=== PATIENT | male | born 1950 | race Caucasian/White ===

== ENCOUNTER 2016-07-01 10:40 | Observation (INO) | payer OTHER, MEDICARE ==
[~2016-07-01] VITALS: Ht 182.9 cm; Wt 78.2 kg
[~2016-07-01 10:40] MED LIST: Aspirin PO; B 12 PO; CRES20T PO; NITR0.4T6 SL; OMEP-113 PO; TURM500C7 PO; UBID100C25 PO; Vit C PO; Vit D3 PO; [UNRECOGNIZED DRUG - OTHER] PO
[2016-07-01 10:57] VITALS: BP 142/90; PULSE 74; RESP 16; O2SAT 99
--- NOTE | 2016-07-01 11:06 | ED.REPORT ---
HPI-Chest Pain 40 and Over Date of Service Jul 01, 2016 ED Provider: Nathalie Slaughter MD The patient is a 65 year old male with history of coronary artery disease s/p stenting and CABG, hypertension, hyperlipidemia, atrial fibrillation, nonsustained ventricular tachycardia s/p pacemaker, GERD, and prostate cancer s/ p prostatectomy, who presents to the emergency department complaining of intermittent chest pain that began a couple of weeks ago. The pain has been mild and he describes the pain as a pressure. The episodes of chest pain have increased in frequency. The episodes do not seem to be brought on by anything specific and have occurred at rest. With some episodes he also experiences shortness of breath and lightheadedness. The episodes have lasted for a few seconds, few minutes, and up to a half hour. He had one episode a few days ago that was more severe. Yesterday he noticed increased shortness of breath with activity. Today his pain was located on the left side and is still present. He denies nausea, diaphoresis, radiating pain, headache, abdominal pain, extremity problems, weakness, numbness, swelling, cough, sore throat or runny nose. The patient was sick with a cough, phlegm production, and fatigue for a few months but this has resolved. Before the stents and surgery he started to have similar symptoms to what he has recently been experiencing. He was last seen by his corn crop supervisor last August. He was scheduled to see his corn crop supervisor a few weeks ago but this appointment was pushed to August, he was not having symptoms when they called to change the appointment. His last stress test was about 3-4 years ago. Nursing Notes Stated Complaint: CHEST PAIN Chief Complaint: Chest Pain Nursing Notes Reviewed: Yes Allergies: Coded Allergies: morphine (Verified Allergy, Unknown, ANAPHYLAXIS, 07/01/16) Scheduled Aspirin (Aspirin) 81 Mg Tablet 81 MG PO DAILY Cholecalciferol (Vitamin D3) (Vitamin D3) 2,000 Unit Capsule 2,000 UNIT PO MWF Cyanocobalamin (Vitamin B-12) (Vitamin B-12) 5,000 Mcg Tab.subl 5,000 MCG SL MWF Omeprazole (Omeprazole) 20 Mg Capsule.dr 20 MG PO DAILY Rosuvastatin Calcium (Rosuvastatin Calcium) 20 Mg Tablet 20 MG PO HS Ubidecarenone/Vit E Acetate (Co Q-10 100 mg Softgel) 1 Each Capsule 1 EACH PO DAILY Scheduled PRN Nitroglycerin SL (Nitrostat) 0.4 Mg Tab.subl 0.4 MG PO QAM PRN PRN For Chest Pain General Time Seen by MD: 11:05 Chief Complaint Chest pain Hx Obtained From: Patient, Spouse Arrived By: Walk-in Sudden in Onset?: Yes Onset Occurred: More than a week ago... (2 weeks) Symptom Duration: Intermittent Location: : Chest left Quality: Painful, Pressure Severity: Current: Mild Severity: Maximum: Moderate Recent Healthcare: No recent doctor visit, No recent hospitalization Similar Sx Previous: Yes Past Medical History Past Medical History Coronary artery disease s/p stenting Prostate cancer s/p prostatectomy Hypertension Hyperlipidemia Atrial fibrillation Atrial fibrillation Hx of nonsustained ventricular tachycardia s/p pacemaker GERD Arthritis Past Surgical History CABG Cardiac stenting Prostatectomy Knee surgery Hernia repair Hemorrhoidectomy Family History Noncontributory Smoking History Never Smoker Social History Other Social History: Good social support, , Local resident Ambulatory Status Independent Review of Systems Constitutional: Denies: Fever Respiratory: Reports: Dyspnea on exertion, Shortness of breath, Denies: Non-productive cough Cardiovascular: Reports: Chest pain, Dyspnea on exertion GI: Denies: Abdominal pain, Vomiting Musculoskeletal: Denies: Back pain, Extremity pain, Joint pain, Neck pain Skin: Denies Diaphoresis, Denies Swelling Neurologic: Reports: Lightheaded, Denies: Focal weakness, Headache, Numbness Complete sys rev & neg: except as marked. Ears / Nose / Throat: Denies: Nasal congestion, Sore throat Physical Exam Initial Vital Signs Vital Signs (First) Date Time Temp Pulse Resp B/P Pulse Ox O2 Delivery O2 Flow Rate FiO2 07/01/16 10:57 36.2 74 16 142/90 99 Room Air Initial VS: Reviewed, Vital signs abnormal Head / Eyes: Atraumatic, Normocephalic, PERRL ENT: Mucous membranes moist, Conjunctiva normal, No scleral icterus Neck: Supple, Non-tender, Full range of motion Lymphatic: No lymphadenopathy Extremities: Vascular intact, No swelling, No tenderness Skin: Warm, Dry, No cyanosis Neurologic: Alert, Oriented, Nonfocal Psychiatric: Mood/affect normal, Behavior normal, Normal thought content General/Constitutional: Awake, Alert, No acute distress, Well appearing, Cooperative Respiratory / Chest: Atraumatic, Breath sounds NL, Breath sounds = bilat, No respiratory distress, No rales, No rhonchi, No wheezing, No stridor, No chest tenderness Cardiovascular: Heart rate NL, Regular rhythm, Heart sounds NL, No gallop, No murmurs, No rubs, Peripheral circulation NL, Pulses = bilaterally, No gross BP differential Abdomen: Atraumatic, Soft, Non-tender, McBurney's non-tender, No guarding, No rebound, BS normoactive, No distention, No hernia, No palpable mass Upper Extremity / MS: Neurologic intact, Vascular intact Lipoma to his right distal forearm. Ankle / Foot: Vascular intact Right foot drop Interpretation & Diagnostics Lab Results Interpretation Result Diagram: 07/01/16 1150 07/01/16 1150 Test 07/01/16 11:50 White Blood Count 3.8th/mm3 (3.8-10.1) Red Blood Count 5.20mil/mm3 (4.40-5.80) Hemoglobin 14.6g/dL (13.8-17.2) Hematocrit 42.6% (41.0-50.0) Mean Corpuscular Volume 81.9fL (81-100) Mean Corpuscular Hemoglobin 28.1pg (27.0-35.0) Mean Corpuscular Hemoglobin Concent 34.3% (32.0-37.0) Red Cell Distribution Width 13.4% (12.3-15.4) Platelet Count 169bil/L (150-400) Neutrophils (%) (Auto) 62.4% (40-74) Lymphocytes (%) (Auto) 20.9% (14-46) Monocytes (%) (Auto) 12.4% (4-12) Eosinophils (%) (Auto) 3.2% (0-5) Basophils (%) (Auto) 0.8% (0-3) Sodium Level 138mEq/L (134-144) Potassium Level 4.3mEq/L (3.5-5.2) Chloride Level 102mEq/L (97-108) Carbon Dioxide Level 25mmol/L (18-29) Blood Urea Nitrogen 15mg/dL (8-27) Creatinine 1.04mg/dL (0.76-1.27) Estimat Glomerular Filtration Rate 76mL/min (>59) Glucose Level 90mg/dL (60-99) Calcium Level 9.5mg/dL (8.5-10.1) Magnesium Level 2.1mg/dL (1.6-2.6) Total Bilirubin 0.4mg/dL (0.0-1.2) Aspartate Amino Transf (AST/SGOT) 18U/L (0-50) Alanine Aminotransferase (ALT/SGPT) 17U/L (0-44) Alkaline Phosphatase 60U/L (25-160) Troponin T < 0.010ug/L (0.0-0.011) Total Protein 6.6g/dL (6.4-8.4) Albumin 4.1g/dL (3.4-5.0) Hold Echavarria Top Tube Received (Received) ECG Interpretation ECG Interpretation: Sinus rhythm with a rate of 64 No acute findings Time: 11:51 Interpreted by: ED physician X-Ray Chest Interpretation Chest Xray Interpretation: IMPRESSION: No acute pulmonary process. Dictated by: Greta Babb M.D. on 07/01/2016 at 12:18 Interpretation / Wet Read by: Interpret - Radiologist Re-Eval/Medical Decision Med Decision/Clinical Course The patient has a significant history of coronary artery disease and his symptoms remind him of his symptoms prior to leading up to his other procedures. I spoke with Dr. Murillo, they are unable to get the patient in a timely manner therefore the patient will be admitted for stress test and further evaluation. Source of Hx: Old records Time of Eval: 13:34 Re-Evaluation/Progress Note: Rechecked the patient. Discussed plan for admission. All questions were addressed. Consultation #1: Referral / Consult Name: Ashlee Murillo MD Consulted With: Cardiology Call Returned at: 13:33 Ruby Developer: Agrees with eval, Agrees with plan Note: She would like the patient admitted. Consultation #2: Referral / Consult Name: Escobar Hunt MD Consulted With: Hospitalist Call Returned at: 14:29 Ruby Developer: Will see patient, Agrees with eval, Agrees with plan, Accepts admit Counseled Regarding: Diagnosis, Lab results, Need for admission Discharge & Departure Primary Impression: Chest pain Chest pain type: unspecified Qualified Code: R07.9 - Chest pain, unspecified Disposition: ADMITTED TO HOSPITAL Discharge Condition All VS Reviewed: Yes Condition: Stable Referrals: Jaun Valdes MD (PCP) Scribe Attestation Portions of this note were transcribed by Rosalba Ramos. I, Dr. Slaughter personally performed the history, physical exam and medical decision-making; I reviewed and confirmed the accuracy of the information in the transcribed note. Signed by: Emelia Shah, 07/01/2016 at 1430. copies to: Jaun Valdes MD, Jena M MD Jul 01, 2016 11:06 Rosalba Ramos Jul 01, 2016 11:12
[2016-07-01 12:05] LABS: BASOPHILS % (AUTO) 0.8 % (0-3); EOSINOPHILS % (AUTO) 3.2 % (0-5); MONOCYTES % (AUTO) 12.4 % (4-12); Mean Corpuscular Hemoglobin 28.1 pg (27.0-35.0); Mean Corpuscular Volume 81.9 fL (81-100); NEUTROPHILS % (AUTO) 62.4 % (40-74); Platelet Count 169 bil/L (150-400)
--- NOTE | 2016-07-01 12:21 | DRSVH ---
PROCEDURE: X-RAY CHEST ONE VIEW, PORTABLE ([id number]) INDICATIONS: chest pain TECHNIQUE: One view of the chest was acquired. COMPARISON: [facility], , CHEST 1VW, 09/23/2014, 10:25. FINDINGS: Surgical changes and devices: Sternal wires. Lungs and pleura: No pleural effusions or pneumothorax. Lungs are clear. Mediastinum: Mediastinal contours appear normal. Heart size is normal. Bones and chest wall: No suspicious bony lesions. Overlying soft tissues appear unremarkable. IMPRESSION: No acute pulmonary process. Dictated by: Greta Babb M.D. on 07/01/2016 at 12:18 Approved by: Greta Babb M.D. on 07/01/2016 at 12:19
[2016-07-01 12:33] LABS: TROPONIN T < 0.010 ug/L (0.0-0.011)
[2016-07-01 12:43] LABS: Magnesium 2.1 mg/dL (1.6-2.6)
[2016-07-01 12:52] VITALS: BP 115/74; PULSE 68; RESP 14; O2SAT 99
[2016-07-01 14:31] VITALS: BP 140/65; PULSE 71; RESP 14; O2SAT 98
[2016-07-01] MEDS ORDERED: ROSU20TA27 PO (14:51)
[2016-07-01] MEDS ORDERED: CHOL200047 PO (14:51)
[2016-07-01] MEDS ORDERED: NITR0.4T PO (14:51)
[2016-07-01] MEDS ORDERED: OMEP20CA11 PO (14:51)
[2016-07-01] MEDS ORDERED: UBID1CAP52 PO (14:51)
[2016-07-01] MEDS ORDERED: ASPI-973 PO (14:51)
[2016-07-01] MEDS ORDERED: CYAN50002 SL (14:51)
[2016-07-01] MEDS ORDERED: Ondansetron 2 mg/mL 2 mL Inj IVPUSH PRN (15:20)
[2016-07-01] MEDS ORDERED: Polyethylene Glycol (PEG) 17 Gm Powder PO PRN (15:20)
[2016-07-01] MEDS ORDERED: Alum-Mag Hydrox-Simeth 30 mL Suspension PO PRN (15:20)
[2016-07-01] MEDS ORDERED: CYANOCOBALAMIN 5000 MCG SL SCH (15:20)
--- NOTE | 2016-07-01 16:07 | NUR ---
Admission Pt arrived on [facility] by wheelchair, able to stand and walk independently. No complains of chest discomfrt/pressure. A/Ox3. Oriented to call light, BR, and visiting hours.
--- NOTE | 2016-07-01 16:33 | PCM.HPMED ---
Subjective Date of Service Jul 01, 2016 Primary Provider: Admitting Physician: Escobar Hunt MD Primary Care Physician: Jaun Valdes MD Attending Physician: Escobar Hunt MD Admit Status: From the Emergency Department Chief Complaint: Chest pain History of Present Illness: 65-year-old male with past medical history of coronary artery disease status post stenting, CABG 3, prostate cancer, and hyperlipidemia presents to the emergency department with mild intermittent chest pain that has been progressively worsening over the last few weeks. He states that the pain is a mild pressure but finds it concerning because it has become more frequent. Initially episodes were lasting a few seconds to minutes and now are lasting up to a half an hour. Sensation he had today was on his left side wrapped around to his back. Yesterday he had an episode of increased shortness of breath with activity . He finds that this pain does not directly relate to activity. Often times it will come on after he has been exerting himself but can not make a direct correlation to specific events. He endorses some decreased exercise intolerance and pounding heart beats while waking from sleep at night but does not feel his heart racing or palpitations. He has had no headache, abdominal pain, nausea, vomiting, or diaphoresis. He has no current cold or flu symptoms but did have "the flu" in Apr/May. He has been on metoprolol in the past but was tapered off due to low blood pressures. Last stress test was 3-4 years ago. Prior to stent placement patient had stress test that he was unable to complete. In the emergency department patient was afebrile with a pulse of 74, blood pressure 142/90, respiratory rate 16, O2 saturation 99 on room air. Aspirin and nitroglycerin were given. Review of Systems: A comprehensive review of systems was conducted with the patient and found to be negative except as above in the History of Present Illness. Allergies Coded Allergies: morphine (Verified Allergy, Unknown, ANAPHYLAXIS, 07/01/16) Home Medications 1. Aspirin 81 mg by mouth every morning 2. Vitamin D3 2000 units by mouth Monday 3. Vitamin B12 5000 g sublingual Monday 4. Nitrostat 0.4 mg by mouth 3 when necessary for chest pain 5. Omeprazole 20 mg by mouth every morning 6. Rosuvastatin calcium 20 mg by mouth at bedtime 7. Co-Q10 100 mg soft gel by mouth every morning PMH Coronary artery disease s/p stenting Prostate cancer s/p prostatectomy Hyperlipidemia Atrial fibrillation Hx of nonsustained ventricular tachycardia GERD Arthritis Right foot drop as a result of falling off of a bridge Surgical History CABG 3 vessel in 2011 Cardiac stenting in 2009 Prostatectomy Right Knee ORIF and ligament surgery Left knee ligament repair Hernia repair bilateral Hemorrhoidectomy Family History Father with CHF Mother at of [place] at age 60, many of her siblings have also at a relatively young age with heart disease Multiple cousins with heart disease Maternal grandparents both had heart issues. 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 Exam Vital Signs Vital Sign - Last Date Time Temp Pulse Resp B/P Pulse Ox O2 Delivery O2 Flow Rate FiO2 07/01/16 14:31 36.5 71 14 140/65 98 Room Air Exam General: No acute distress, well-developed, well-nourished, appropriately interactive HEENT: Normocephalic, atraumatic. External ears without defect. Pupils equal, round, and reactive to light and accommodation. Anicteric sclerae, moist conjunctivae, and no lid lag. Oropharynx free of erythema and cobble stoning with moist mucosa. Neck: Supple with full range of motion. No jugular venous distension. No lymphadenopathy or thyromegaly. Cardiovascular: Regular rate and rhythm with no murmurs, rubs, or gallops appreciated Pulmonary: Clear to auscultation bilaterally with no crackles, wheezes, or rhonchi. Normal respiratory effort with no use of accessory muscles. Abdomen: Bowel tones present. Soft, nontender, nondistended. No hepatosplenomegaly or masses appreciated. Extremities: Lipoma on right distal forearm. No clubbing, cyanosis, edema, or lymphadenopathy appreciated. Skin: Normal temperature, turgor, and texture; no rash, ulcers, or subcutaneous nodules appreciated. Neurological: Cranial nerves grossly intact. Normal muscle strength, tone, and bulk. Right foot drop, ambulates with support and shoe otherwise independently. Psychiatric: Normal mood and affect. Alert and oriented to person, place, and time. Lab and Diagnostics Labs Troponin negative 2 Result Diagram: 07/01/16 1150 07/01/16 1150 X-Rays, CTs and MRIs PROCEDURE: X-RAY CHEST ONE VIEW, PORTABLE IMPRESSION: No acute pulmonary process. Dictated by: Greta Babb M.D. on 07/01/2016 at 12:18 Assessment & Plan 65 year old male with history of coronary artery disease s/p stenting and CABG, hypertension, hyperlipidemia, atrial fibrillation, nonsustained ventricular tachycardia s/p pacemaker, GERD, and prostate cancer s/p prostatectomy, who presents to the emergency department complaining of intermittent worsening chest pain that began a couple of weeks ago. 1. Chest pain, acute, resolved - Likely stable angina, risk factors for CAD/ACS HTN, family history, hyperlipidemia, unknown prior stress test, echo - GLORIA score 4 - Trend troponin , initial is negative - Continue ASA 81 mg PO QD - Continue statin - Nitroglycerin when necessary - Stress test AM ordered - ECHO ordered - lipid panel ordered - Repeat CBC and CMP in AM - Monitor on telemetry - Heart healthy diet -patient not on BB due to history of low BP and light headedness on metoprolol 2. GERD, present on admission, chronic -Continue PPI by mouth daily 3.CAD s/p CABG and stent Chronic conditions present on admission Osteoarthritis Hyperlipidemia Prostate cancer Acetaminophen for mild pain when necessary. Bowel regimen Senna and MiraLAX PRN. Zofran when necessary for nausea and vomiting. DVT prophylaxis with sub cutaneous Lovenox Patient is admitted under observation status with expected length of stay less than 2 midnights due to severity of presenting symptoms, risk of adverse event, and complexity of treatment plan. Pain Evaluation: Adequate Pain Control GI Prophylaxis: Proton Pump Inhibitor VTE Prophylaxis: Sub-Q Enoxaparin Resuscitation Status: CPR: Attempt Resuscitation Attending Statement The patient was seen and examined independently on 07/01/2016 and case discussed with Dr. Drew , I agree with the history, exam and plan as outlined in the note above. copies to: Chang Valdes MD; Jose Raul Frias MD, Erika R DO Jul 01, 2016 16:33 Vijay Ravi MD Jul 01, 2016 23:49
[2016-07-01 16:45] VITALS: BP 140/88; PULSE 73; RESP 18; O2SAT 100
[2016-07-01 16:55] VITALS: PULSE 76
[2016-07-01 21:41] VITALS: BP 118/74; PULSE 68; RESP 16; O2SAT 97
[2016-07-02] VITALS (8 sets, daily range): BP systolic 119–143; BP diastolic 73–88; PULSE 61–78; RESP 18; O2SAT 95–100
[2016-07-02 06:05] LABS: BASOPHILS % (AUTO) 0.5 % (0-3); MONOCYTES % (AUTO) 11.5 % (4-12); Mean Corpuscular Volume 82.2 fL (81-100); NEUTROPHILS % (AUTO) 65.1 % (40-74); Platelet Count 167 bil/L (150-400)
[2016-07-02] MEDS ORDERED: VIT E ACETATE PO SCH (08:30)
[2016-07-02] MEDS ORDERED: UBIDECARENONE PO SCH (08:30)
--- NOTE | 2016-07-02 11:45 | NUR ---
Social Work: Initial Assessment / Readiness for d/c Data: Pt is a 65 y/o male admitted for chest pain resolved. Pt's PCP is Dr Valdes. Pt's insurance is [employer] with Medicare. Readmit score is 0. EMR reviewed. PRODUCTION CLOTH CUTTER met with pt and spouse at bedside, role explained. Pt states he lives in [place] with his in a home with 5 stairs to enter where he uses no DME. Pt states he has no hx of HH or SNF, not LTC or VA benefits, not a caregiver, and they do not have an AD/DPOA, declined information. No d/c needs anticipated at this time. PRODUCTION CLOTH CUTTER will continue to follow if needs arise. Assessment: Pt who is independent at baseline. Plan: Pt will d/c home via POV with spouse when medically stable, likely today or tomorrow per MD. No d/c needs anticipated at this time. PRODUCTION CLOTH CUTTER will continue to follow if needs arise. ERIK Chow Addendum: 07/02/16 at 1147 by BRAYDEN MENDEZ Amended: Links added.
[2016-07-02] MEDS: Pantoprazole 20 mg ER24 Tablet PO SCH (13:24)
--- NOTE | 2016-07-02 14:53 | PCM.PNMED ---
Subjective Date of Service Jul 02, 2016 Subjective Patient experienced 2 more episodes of mild chest discomfort overnight lasting about 1 minute each. Otherwise he is feeling well this morning, and looking forward to his stress test. Exam Vital Signs Vital Sign - Last Date Time Temp Pulse Resp B/P Pulse Ox O2 Delivery O2 Flow Rate FiO2 07/02/16 09:54 72 07/02/16 09:09 36.6 18 128/79 98 Room Air Intake and Output 07/01/16 07/01/16 07/02/16 Cumulative From/Thru 15:00 23:00 07:00 07/01/16 10:57 - 07/02/16 05:47 Intake Total 572 ml 200 ml 772 ml Output Total 350 ml 350 ml Balance 572 ml -150 ml 422 ml Intake Oral 572 ml 200 ml 772 ml Output Urine Total 350 ml 350 ml # Voids 1 1 # Bowel Movements 0 0 0 Exam General: No acute distress, well-developed, well-nourished, appropriately interactive HEENT: Normocephalic, atraumatic. External ears without defect. Pupils equal, round, and reactive to light and accommodation. Anicteric sclerae, moist conjunctivae, and no lid lag. Oropharynx free of erythema and cobble stoning with moist mucosa. Neck: Supple with full range of motion. No jugular venous distension. No lymphadenopathy or thyromegaly. Cardiovascular: Regular rate and rhythm with no murmurs, rubs, or gallops appreciated Pulmonary: Clear to auscultation bilaterally with no crackles, wheezes, or rhonchi. Normal respiratory effort with no use of accessory muscles. Abdomen: Bowel tones present. Soft, nontender, nondistended. No hepatosplenomegaly or masses appreciated. Extremities: Lipoma on right distal forearm. Graft harvest scar on left forearm and left ankle. Scar on right lateral knee area with some deformity. No clubbing, cyanosis, edema, or lymphadenopathy appreciated. Skin: Normal temperature, turgor, and texture; no rash, ulcers, or subcutaneous nodules appreciated. Neurological: Cranial nerves grossly intact. Normal muscle strength, tone, and bulk. Right foot drop, ambulates with support and shoe otherwise independently. Psychiatric: Normal mood and affect. Alert and oriented to person, place, and time. Lab and Diagnostics Result Diagram: 07/02/16 0553 07/02/16 0553 X-Rays, CTs and MRIs PROCEDURE: X-RAY CHEST ONE VIEW, PORTABLE IMPRESSION: No acute pulmonary process. Dictated by: Greta Babb M.D. on 07/01/2016 at 12:18 Assessment & Plan 65 year old male with history of coronary artery disease s/p stenting and CABG, hypertension, hyperlipidemia, atrial fibrillation, nonsustained ventricular tachycardia s/p pacemaker, GERD, and prostate cancer s/p prostatectomy, who presents to the emergency department complaining of intermittent worsening chest pain that began a couple of weeks ago. 1. Chest pain, acute, resolved - Likely stable angina, risk factors for CAD/ACS HTN, family history, hyperlipidemia, prior stress test 3-4 years ago - GLORIA score 4 - Trend troponin negative 3 - Continue ASA 81 mg PO QD - Continue statin - Nitroglycerin when necessary - Stress test resting images in the a.m. - ECHO pending - lipid panel shows elevated triglycerides of 168 and an LDL of 54.4. - Repeat CBC and CMP in AM - Monitor on telemetry - Heart healthy diet, eats vegan diet. - patient not on BB due to history of low BP and light headedness on metoprolol - ECG when necessary for chest pain 2. GERD, present on admission, chronic -Continue PPI by mouth daily 3.CAD s/p CABG and stent Chronic conditions present on admission Osteoarthritis Hyperlipidemia Prostate cancer Acetaminophen for mild pain when necessary. Bowel regimen Senna and MiraLAX PRN. Zofran when necessary for nausea and vomiting. DVT prophylaxis with sub cutaneous Lovenox Patient is admitted under observation status with expected length of stay less than 2 midnights due to severity of presenting symptoms, risk of adverse event, and complexity of treatment plan. Likely to discharge home tomorrow after resting cardiac stress images. Pain Evaluation: Adequate Pain Control GI Prophylaxis: Proton Pump Inhibitor VTE Prophylaxis: Sub-Q Enoxaparin Resuscitation Status: CPR: Attempt Resuscitation Attending Statement The patient was seen and examined independently on 07/02/2016 and case discussed with Dr. Drew , I agree with the history, exam and plan as outlined in the note above. copies to: Jose Raul Frias MD, Erika R DO Jul 02, 2016 14:53 Vijay Ravi MD Jul 02, 2016 16:46
--- NOTE | 2016-07-02 15:57 | DRSVH ---
[facility] [address] [place] [address] Echocardiogram Report Name: JADE ARTEAGA BStudy Date: Height: 72 in Hospital Exam Location: [facility] Weight: 172 lb Gender: Male BSA: 2.0 m2 : 1950 Age: 65 yrs BP: 120/74 mmHg Reason For Study: CHEST PAIN Ordering Physician: HOSPITALIST [facility] Performed By: Jimbo Ceballos Referring Physician: Dr. Sary Valdes Interpretation Summary 1. Normal left ventricular size, wall thickness and systolic function with an estimated EF of 55 to 60% 2. Normal right ventricular size with mildly reduced systolic function. 3. No evidence for significant valvular pathology Compared to the previous study of 2012 (images reviewed), no appreciable change Procedure: A two-dimensional transthoracic echocardiogram with color flow and Doppler was performed. The study quality was technically good. Comparison is made with the echocardiogram of 01/15/14. The patient was in normal sinus rhythm during the exam. Left Ventricle: The left ventricle is normal in size. There is normal left ventricular wall thickness. The ejection fraction is estimated to be 55-60%. No obvious focal wall motion abnormalities appreciated. Right Ventricle: The right ventricle is normal size. Right ventricular systolic function is mildly reduced. Atria: Both atria are normal in size. No color doppler evidence for an ASD. Mitral Valve: The mitral valve is normal in structure and function. There is no mitral regurgitation noted. Aortic Valve: The aortic valve is trileaflet. The aortic valve opens well. The aortic valve is slightly calcified. There is mild aortic regurgitation. Tricuspid Valve: The tricuspid valve leaflets are thin and pliable. There is a trace or physiologic amount of tricuspid regurgitation. Pulmonary artery pressures cannot be estimated because of the lack of a measurable TR jet velocity. Pulmonic Valve: The pulmonic valve is normal in structure and function. There is trace pulmonic regurgitation. Great Vessels: The aortic root is normal size. The dimensions of the ascending aorta are normal. The pulmonary artery is normal size. The IVC is of normal diameter and collapses greater than 50% with a sniff. This suggests a low right atrial pressure of 3 mm Hg. Pericardium/ Pleura There is no pericardial effusion. There is no pleural effusion. MMode/2D Measurements & Calculations LVIDd: 5.4 cm LA dimension: 3.8 cm RA long axis: 4.0 cm Ao root diam LVIDs: 3.7 cm FS: 31.4 % LA A2 area: 16.9 cm RA area: 13.0 cm Aortic Jxn EPSS: 0.49 cm LA A4 area: 18.7 cm RA vol: 36.1 ml IVSd: 0.84 cm LA length (vol): 4.9 cm RA : 18.1 ml/m2 asc Aorta Diam LVPWd: 0.86 cmLA vol: 54.8 ml LA vol index: 27.4 ml/m IVC diam: 1.4 cm EDV(MOD-sp2) LV arce. diameter/BSA LV sys. diameter/BSA RVD1 (basal) (cm/m^2): 2.7 (cm/m^2): 1.8 : 3.7 cm RVD2 (mid) : 2.9 cm Doppler Measurements & Calculations Ao V2 max MV E max isael MV E/A: 0.71 PA V2 max: 81.6 cm/sec : 132.6 cm/sec : 38.5 cm/sec Med Peak E' Isael PA mean P.6 mmHg Ao max PG MV A max isael PA Accel Time: 0.07 sec : 7.0 mmHg : 53.9 cm/sec E/E' med: 5.5 Ao mean PG Pulm A Revs Dur : 4.1 mmHg MV A dur: 0.13 sec MV dec time Ao V2 mean PA V2 mean Pulm A Revs Dur - MV A : 0.20 sec : 98.4 cm/sec : 62.1 cm/sec Dur: -0.04 msec Ao V2 VTI PA pr(Accel) : 22.4 cm : 49.1 mmHg Reading Physician:03:[id number] PM
--- NOTE | 2016-07-02 19:43 | NUR ---
EKG/stress test Pt alert and oriented. Has denied chest pain or pressure all shift. At one point around 1600 he did report dizziness and slight SOB. Pt was sitting in bed when he reported this. Vitals checked and he was slightly hypertensive @143/88 HR 106. Called tele, no ectopy noted, reviewed tele, no ectopy noted. Dana made aware. She states next time to go ahead and get an EKG just to assure no change in EKG due to his cardiac sx. and current sx of dizziness and SOB. Oncoming RN made aware. Pt aware of plan. First part of stress test done today, resting part will occur tomorrow.
[2016-07-03 01:38] VITALS: BP 104/69; PULSE 72; RESP 18; O2SAT 97
--- NOTE | 2016-07-03 04:25 | NUR ---
Uneventful Night pt has denied pain during the night. no complaints at this time. pt has been able to sleep. VSS, afebrile, on Ra. IV SL, patent when flushed. NPO after midnight for resting MIBI today. pt using call light to make needs known, placed within reach.
[2016-07-03 05:22] VITALS: PULSE 72
[2016-07-03 05:44] VITALS: BP 111/73; PULSE 69; RESP 16; O2SAT 98
[2016-07-03 06:25] LABS: Mean Corpuscular Hemoglobin 27.9 pg (27.0-35.0); Mean Corpuscular Volume 82.1 fL (81-100)
[2016-07-03 08:39] VITALS: PULSE 75
[2016-07-03] MEDS: Pantoprazole 20 mg ER24 Tablet PO SCH (09:25)
[2016-07-03 09:31] VITALS: BP 126/82; PULSE 60; RESP 18; O2SAT 98
--- NOTE | 2016-07-03 09:44 | NUR ---
Nuc Med Pt being transported to [facility] via w/c.
--- NOTE | 2016-07-03 11:22 | DRSVH ---
PROCEDURE: 2 DAY STRESS TEST Rest and exercise myocardial perfusion SPECT with gated imaging and ejection fraction RADIOPHARMACEUTICAL: 21.7 mCi Tc-99m tetrafosmin IV at rest and 21.1 mCi Tc-99m tetrafosmin IV at pea k exercise. [id number] was performed. INDICATIONS: chest pain,h/o CAD TECHNIQUE: Radiopharmaceutical was injected at peak stress test, and also at rest. SPECT images wer e obtained. SPECT myocardial perfusion images were displayed in short axis, horizontal long axis, an d vertical long axis views. Gated images were reviewed using [employer] software. COMPARISON: None. CARDIAC STRESS: A standard Devang treadmill exercise tolerance test was performed by the patient under the supervision of an attending staff. The patient exercised for 7 minutes and 35 seconds; functional aerobic impai rment (JULIANA) is -9 %. Hemodynamic data: There is normal blood pressure and heart rate response to exercise stress. Rose Marieen t achieved 101% of maximum predicted heart rate at peak exercise. Symptoms: Patient denied chest pain during exercise. EKG: Baseline ECG shows sinus rhythm with nonspecific ST changes. There are no diagnostic ECG ponce es with stress. No arrythmias FINDINGS: Raw data: There is good myocardial labeling by radiotracer. No significant motion artifacts. Left ventricle function: Gated images demonstrate septal hypokinesis with fairly normal thickening ( consistent with a post surgical state) No transient ischemic dilation by visual inspection. The left ventricle resting end-diastolic volume is 102 mL. Left ventricle stress ejection fraction is 57% ; normal values are above 45%. Myocardial perfusion: There is a small area of mildly decreased uptake affecting the inferior wall t hat appears fixed on the rest and stress images. This resolves on the prone images. It also moves/t hickens on the gated images. Review of the raw data suggests diaphragmatic attenuation artifact as a contributor to these findings. No other imaging defects appreciated. IMPRESSION: 1. Appropriate hemodynamic response to exercise. 2. No chest pain or diagnostic ECG changes with stress. 3. No scintigraphic evidence for significant areas of myocardial ischemia at the level of stress achi eved. 4. Normal left ventricular size and systolic function. Dictated by: Ashlee Murillo M.D. on 07/03/2016 at 11:10 Approved by: Ashlee Murillo M.D. on 07/03/2016 at 11:21
[2016-07-03] MEDS ORDERED: OMEP20CA11 PO (11:35)
--- NOTE | 2016-07-03 11:35 | PCM.DIMED ---
Discharge Instructions Date of Service Jul 03, 2016 Dates of Hospitalization Jul 01, 2016 at 15:05 Discharge Diagnosis Discharge Diagnosis 1. Chest pain ACS ruled out , acute, resolved -probably due to GERD/acid reflux 2. GERD, present on admission, chronic 3.CAD s/p CABG and stent Chronic conditions present on admission #Osteoarthritis #Hyperlipidemia Test Results stress test IMPRESSION: 1. Appropriate hemodynamic response to exercise. 2. No chest pain or diagnostic ECG changes with stress. 3. No scintigraphic evidence for significant areas of myocardial ischemia at the level of stress achieved. 4. Normal left ventricular size and systolic function. Dictated by: Ashlee Murillo M.D. on 07/03/2016 at 11:10 Echo Interpretation Summary 1. Normal left ventricular size, wall thickness and systolic function with an estimated EF of 55 to 60% 2. Normal right ventricular size with mildly reduced systolic function. 3. No evidence for significant valvular pathology Compared to the previous study of 2012 (images reviewed), no appreciable change Diet Low fat, Low Sodium, Heart Healthy Activity Limited until seen by PCP Call your provider Fever or Chills, Shortness of breath, Bleeding, Chest pain, Vomitting, Excessive diarrhea, Weakness (unilateral) Patient Instructions You were hospitalized due to chest pain. EKG and lab test negative for heart attack. Echocardiogram unchanged and stress test low risk study.Your chest pain may be related to acid reflux. Please continue omeprazole 20 mg by mouth twice a day. Please follow-up with PCP in 1 week. Please see your PCP or come to ER if symptoms recur. Continue rest of your medications as usual with out change. Follow-up plan Please follow-up with PCP in 1 week. Please follow-up with his net maker in 3-4 weeks. Follow-up Provider: Jaun Valdes MD Follow-up with PCP in: 1 week Provider: Jose Raul Frias MD Follow-up in: 3 weeks Vijay Ravi MD Jul 03, 2016 11:35
--- NOTE | 2016-07-03 12:21 | NUR ---
Discharge Pt and understood all teaching, and medications that will be taken at home. No questions from either. Pt A&O x 4. IV DC'd intact, no problems. All belongings accounted for. Pt walked to care with .
--- NOTE | 2016-07-03 12:53 | PCM.DC.MED ---
Discharge Summary Date of Service Jul 03, 2016 Dates of Hospitalization Date of Hospital Admission Jul 01, 2016 at 15:05 Date of Discharge: Jul 03, 2016 Providers: Admitting Physician: Escobar Hunt MD Primary Care Physician: Jaun Valdes MD Attending Physician: Escobar Hunt MD Diagnosis at Time of Discharge Diagnosis at Time of Discharge 1. Chest pain ACS ruled out , acute, resolved -probably due to GERD/acid reflux 2. GERD, present on admission, chronic 3.CAD s/p CABG and stent Chronic conditions present on admission #Osteoarthritis #Hyperlipidemia Procedures XRay, CTs & MRIs PROCEDURE: X-RAY CHEST ONE VIEW, PORTABLE IMPRESSION: No acute pulmonary process. Dictated by: Greta Babb M.D. on 07/01/2016 at 12:18 Cardiac Echo Impression ECHO 07/02/16 Interpretation Summary 1. Normal left ventricular size, wall thickness and systolic function with an estimated EF of 55 to 60% 2. Normal right ventricular size with mildly reduced systolic function. 3. No evidence for significant valvular pathology Compared to the previous study of 2012 (images reviewed), no appreciable change Other Diagnostics PROCEDURE: 2 DAY STRESS TEST Rest and exercise myocardial perfusion SPECT with gated imaging and ejection fraction RADIOPHARMACEUTICAL: 21.7 mCi Tc-99m tetrafosmin IV at rest and 21.1 mCi Tc-99m tetrafosmin IV at peak exercise. [id number]-[id number] was performed. INDICATIONS: chest pain,h/o CAD TECHNIQUE: Radiopharmaceutical was injected at peak stress test, and also at rest. SPECT images were obtained. SPECT myocardial perfusion images were displayed in short axis, horizontal long axis, and vertical long axis views. Gated images were reviewed using [employer] software. COMPARISON: None. CARDIAC STRESS: A standard Devang treadmill exercise tolerance test was performed by the patient under the supervision of an attending staff. The patient exercised for 7 minutes and 35 seconds; functional aerobic impairment (JULIANA) is -9 %. Hemodynamic data: There is normal blood pressure and heart rate response to exercise stress. Patient achieved 101% of maximum predicted heart rate at peak exercise. Symptoms: Patient denied chest pain during exercise. EKG: Baseline ECG shows sinus rhythm with nonspecific ST changes. There are no diagnostic ECG changes with stress. No arrythmias FINDINGS: Raw data: There is good myocardial labeling by radiotracer. No significant motion artifacts. Left ventricle function: Gated images demonstrate septal hypokinesis with fairly normal thickening (consistent with a post surgical state) No transient ischemic dilation by visual inspection. The left ventricle resting end- diastolic volume is 102 mL. Left ventricle stress ejection fraction is 57% ; normal values are above 45%. Myocardial perfusion: There is a small area of mildly decreased uptake affecting the inferior wall that appears fixed on the rest and stress images. This resolves on the prone images. It also moves/thickens on the gated images. Review of the raw data suggests diaphragmatic attenuation artifact as a contributor to these findings. No other imaging defects appreciated. IMPRESSION: 1. Appropriate hemodynamic response to exercise. 2. No chest pain or diagnostic ECG changes with stress. 3. No scintigraphic evidence for significant areas of myocardial ischemia at the level of stress achieved. 4. Normal left ventricular size and systolic function. Dictated by: Ashlee Murillo M.D. on 07/03/2016 at 11:10 Brief History 65-year-old male with past medical history of coronary artery disease status post stenting, CABG 3, prostate cancer, and hyperlipidemia presents to the emergency department with mild intermittent chest pain that has been progressively worsening over the last few weeks. He states that the pain is a mild pressure but finds it concerning because it has become more frequent. Initially episodes were lasting a few seconds to minutes and now are lasting up to a half an hour. Sensation he had today was on his left side wrapped around to his back. Yesterday he had an episode of increased shortness of breath with activity . He finds that this pain does not directly relate to activity. Often times it will come on after he has been exerting himself but can not make a direct correlation to specific events. He endorses some decreased exercise intolerance and pounding heart beats while waking from sleep at night but does not feel his heart racing or palpitations. He has had no headache, abdominal pain, nausea, vomiting, or diaphoresis. He has no current cold or flu symptoms but did have "the flu" in Apr/May. He has been on metoprolol in the past but was tapered off due to low blood pressures. Last stress test was 3-4 years ago. Prior to stent placement patient had stress test that he was unable to complete. In the emergency department patient was afebrile with a pulse of 74, blood pressure 142/90, respiratory rate 16, O2 saturation 99 on room air. Aspirin and nitroglycerin were given. Hospital Course 65 year old male with history of coronary artery disease s/p stenting and CABG, hypertension, hyperlipidemia, atrial fibrillation, nonsustained ventricular tachycardia s/p pacemaker, GERD, and prostate cancer s/p prostatectomy, who presents to the emergency department complaining of intermittent worsening chest pain that began a couple of weeks ago. 1. Chest pain ACS ruled out , acute, resolved - Likely stable angina, risk factors for CAD/ACS HTN, family history, hyperlipidemia, prior stress test 3-4 years ago - GLORIA score 4 - troponin negative 3 negative - Continue ASA 81 mg PO QD - Continue statin - Nitroglycerin when necessary - Stress test low risk study. - ECHO unchanged from prior - lipid panel shows elevated triglycerides of 168 and an LDL of 54.4. - patient not on BB due to history of low BP and light headedness on metoprolol -pain probably due to known GERD,increased omeperazole to 20 mg po bid from daily 2. GERD, present on admission, chronic -Continue PPI by mouth as above 3.CAD s/p CABG and stent Chronic conditions present on admission Osteoarthritis Hyperlipidemia Prostate cancer discharged home condition on discharge stable Advised to follow-up with his network/telecom engineer Dr. Frias Patient is admitted under observation status with expected length of stay less than 2 midnights due to severity of presenting symptoms, risk of adverse event, and complexity of treatment plan. Likely to discharge home tomorrow after resting cardiac stress images. Exam Vital Signs (Last) Date Time Temp Pulse Resp B/P Pulse Ox O2 Delivery O2 Flow Rate FiO2 07/03/16 09:31 36.3 60 18 126/82 98 Room Air Exam General: No acute distress, well-developed, well-nourished, appropriately interactive HEENT: Normocephalic, atraumatic. External ears without defect. Neck: Supple with full range of motion. No jugular venous distension. No lymphadenopathy or thyromegaly. Cardiovascular: Regular rate and rhythm with no murmurs, rubs, or gallops appreciated Pulmonary: Clear to auscultation bilaterally with no crackles, wheezes, or rhonchi. Normal respiratory effort with no use of accessory muscles. Abdomen: Bowel tones present. Soft, nontender, nondistended. No hepatosplenomegaly or masses appreciated. Extremities: Lipoma on right distal forearm. Graft harvest scar on left forearm and left ankle. Scar on right lateral knee area with some deformity. No clubbing, cyanosis, edema, or lymphadenopathy appreciated. Skin: Normal temperature, turgor, and texture; no rash, ulcers, or subcutaneous nodules appreciated. Neurological: Cranial nerves grossly intact. Normal muscle strength, tone, and bulk. Psychiatric: Normal mood and affect. Alert and oriented to person, place, and time. Test 07/01/16 11:50 07/01/16 22:50 07/02/16 05:53 07/03/16 06:05 Magnesium Level 2.1mg/dL (1.6-2.6) Hold Echavarria Top Tube Received (Received) Troponin T 0.010ug/L (0.0-0.011) Neutrophils (%) (Auto) 65.1% (40-74) Lymphocytes (%) (Auto) 17.7% (14-46) Monocytes (%) (Auto) 11.5% (4-12) Eosinophils (%) (Auto) 5.0% (0-5) Basophils (%) (Auto) 0.5% (0-3) Total Bilirubin 0.5mg/dL (0.0-1.2) Aspartate Amino Transf (AST/SGOT) 15U/L (0-50) Alanine Aminotransferase (ALT/SGPT) 14U/L (0-44) Alkaline Phosphatase 54U/L (25-160) Total Protein 5.9g/dL (6.4-8.4) Albumin 3.7g/dL (3.4-5.0) Triglycerides Level 168mg/dL (0-149) Cholesterol Level 116mg/dL (100-199) LDL Cholesterol, Calculated 54.400mg/dL (0-99) VLDL Cholesterol 33.600mg/dL HDL Cholesterol 28mg/dL (>39) Cholesterol/HDL Ratio 4.14 (0.0-4.4) White Blood Count 3.9th/mm3 (3.8-10.1) Red Blood Count 4.91mil/mm3 (4.40-5.80) Hemoglobin 13.7g/dL (13.8-17.2) Hematocrit 40.3% (41.0-50.0) Mean Corpuscular Volume 82.1fL (81-100) Mean Corpuscular Hemoglobin 27.9pg (27.0-35.0) Mean Corpuscular Hemoglobin Concent 34.0% (32.0-37.0) Red Cell Distribution Width 13.4% (12.3-15.4) Platelet Count 166bil/L (150-400) Sodium Level 141mEq/L (134-144) Potassium Level 4.3mEq/L (3.5-5.2) Chloride Level 105mEq/L (97-108) Carbon Dioxide Level 24mmol/L (18-29) Blood Urea Nitrogen 13mg/dL (8-27) Creatinine 0.99mg/dL (0.76-1.27) Estimat Glomerular Filtration Rate 80mL/min (>59) Glucose Level 97mg/dL (60-99) Calcium Level 9.3mg/dL (8.5-10.1) Discharge Medications Discharge Medications Aspirin (Aspirin) 81 Mg Tablet 81 MG PO QAM (Reported) Cholecalciferol (Vitamin D3) (Vitamin D3) 2,000 Unit Capsule 2,000 UNIT PO MWF ( Reported) Cyanocobalamin (Vitamin B-12) (Vitamin B-12) 5,000 Mcg Tab.subl 5,000 MCG SL MWF (Reported) Omeprazole (Omeprazole) 20 Mg Capsule.dr 20 MG PO BID Prescribed by: AKHIL GUILLEN MD Rosuvastatin Calcium (Rosuvastatin Calcium) 20 Mg Tablet 20 MG PO HS (Reported) Ubidecarenone/Vit E Acetate (Co Q-10 100 mg Softgel) 1 Each Capsule 1 EACH PO QAM (Reported) As needed Nitroglycerin SL (Nitrostat) 0.4 Mg Tab.subl 0.4 MG PO QAM PRN PRN For Chest Pain (Reported) Followup Plan Disposition: home Follow-up plan Please follow-up with PCP in 1 week. Please follow-up with his network/telecom engineer in 3-4 weeks. Discharge Diet: Low fat, Low Sodium, Heart Healthy Discharge Activity: Limited until seen by PCP Patient Instructions You were hospitalized due to chest pain. EKG and lab test negative for heart attack. Echocardiogram unchanged and stress test low risk study.Your chest pain may be related to acid reflux. Please continue omeprazole 20 mg by mouth twice a day. Please follow-up with PCP in 1 week. Please see your PCP or come to ER if symptoms recur. Continue rest of your medications as usual with out change. Follow-up Provider: Jaun Valdes MD Follow-up with PCP in: 1 week Provider: Jose Raul Frias MD Follow-up in: 3 weeks copies to: Jaun Valdes MD; Jose Raul Frias MD, Melaku MD Jul 03, 2016 12:52
== END 2016-07-03 12:09 | disposition home or self-care (01) ==
LOC: SED 10:40 → MPC 15:05
PROVIDERS: ADMIT Hospitalist; ATTEND Internal Medicine
DX: R07.9 Chest pain, unspecified (principal); K21.9 Gastro-esophageal reflux disease without esophagitis; I25.10 Atherosclerotic heart disease of native coronary artery without angina pectoris; I10 Essential (primary) hypertension; I48.91 Unspecified atrial fibrillation; I47.2 Ventricular tachycardia; E78.5 Hyperlipidemia, unspecified; M19.90 Unspecified osteoarthritis, unspecified site; Z85.46 Personal history of malignant neoplasm of prostate; Z88.8 Allergy status to other drugs, medicaments and biological substances; Z95.1 Presence of aortocoronary bypass graft; Z95.5 Presence of coronary angioplasty implant and graft; Z95.0 Presence of cardiac pacemaker; Z79.82 Long term (current) use of aspirin; Z90.79 Acquired absence of other genital organ(s)
CPT/HCPCS: 36415; 71010; 78452; 80048; 80053; 80061; 83735; 84484; 85025; 85027; 93005; 93017; 99285; A9502; C8929; G0378; J1650

== ENCOUNTER 2016-12-08 07:18 | Inpatient (IN) | payer OTHER, MEDICARE ==
[2016-12-08] VITALS (12 sets, daily range): BP systolic 104–141; BP diastolic 62–87; PULSE 54–81; RESP 12–18; O2SAT 94–99
[~2016-12-08] VITALS: Ht 180.3 cm; Wt 78.2 kg
[~2016-12-08 07:18] MED LIST changes: +ASPI-973 PO; -Aspirin PO; -B 12 PO; +Bupivacaine Liposome 1.3% 20 mL Inj INFILTRATE SCH; +CHOL200025 PO; +CYAN1TAB42 PO; +CeFAZolin 2 Gm/50 mL D5W IV Premix IV ONE; +NITR0.4T38 SL; -NITR0.4T6 SL; -OMEP-113 PO; +OMEP20CA11 PO; +TURM1CAP PO; -TURM500C7 PO; -UBID100C25 PO; +UBID1CAP52 PO; +Vancomycin Inj 1,250 MG in 0.9% Sodium Chloride 250 ML IV ONE; -Vit C PO; -Vit D3 PO; -[UNRECOGNIZED DRUG - OTHER] PO
[2016-12-08] MEDS: Lactated Ringer's 1,000 ML IV SCH ×4 (08:06→13:11)
[2016-12-08] MEDS ORDERED: Lactated Ringer's 500 ML IV PRN (10:03)
[2016-12-08] MEDS ORDERED: Lactated Ringer's 1,000 ML IV SCH (10:03)
--- NOTE | 2016-12-08 10:03 | PCM.HPANE ---
Patient Data Surgeon Admitting Provider: Attending Provider:Ernie Reyna MD Primary Care Physician:Jaun Valdes MD Other Provider:Debbie Chanceingham Anesthesia Reason for Visit Right Knee Osteoarthritis Ht/WT & BMI Height (Feet): 5 Height (Inches): 11 Weight (Kilograms): 80.64 Body Mass Index 24.00 Allergies Coded Allergies: morphine (Verified Allergy, Unknown, ANAPHYLAXIS, 11/30/16) Past Anesthesia History Anesthesia History: Denies:: Abnormal Airway, Anesthesia Reactions (itching and burning with morphine, ), Difficult Intubation, Fam Anesthesia Reaction, Fam Malignant Hypertherm, Malignant Hyperthermia Diabetes History Hx Diabetes?: No MRSA MRSA: No Medications Blood Thinner: Aspirin Hypertension Medication: No Home Meds Incl Beta Sheila: No Reported Medications Cholecalciferol (Vitamin D3) (Vitamin D3)2,000 Unit Tablet2,000 Unit PO DAILY 11/30/16 Turmeric/Turmeric Ext/Pepr Ext (Turmeric Complex 500 mg Cap)500 Mg-3 Mg Capsule1 Each PO DAILY 11/30/16 Omeprazole 20 Mg Capsule.dr20 Mg PO DAILY Ref 0 11/30/16 Nitroglycerin SL 0.4 Mg Tab.subl0.4 Mg SL PRN For Chest Pain 11/30/16 Rosuvastatin Calcium (Crestor)20 Mg [id number] Mg PO DAILY 30 Days Ref 0 11/30/16 Cyanocobalamin/Folic Acid (Vitamin P23-Tyfic Acid Tablet)1 Each Tablet1 Each PO 3xweekly 11/30/16 Aspirin 81 Mg Gaatng21 Mg PO DAILY Ref 0 11/30/16 Discontinued Reported Medications Ubidecarenone/Vit E Acetate (Co Q-10 100 mg Softgel)1 Each Capsule1 Each PO DAILYWD 11/30/16 History History of ENT Problems?: No HEENT History: Positive for:: Hearing Problem (upper register hearing loss) Denies:: Abnormal Airway Cataracts Difficult Intubation Dysphagia Glaucoma Sinus Problem TMJ Denture Type: None Teeth Condition: Within Normal Limits Hx of Heart Problems?: Yes Cardiovascular History: Positive for:: Atrial Fibrillation Cardiac Surgery (Stent to LAD 2010, CABG 2012) Chest Pain Coronary Artery Disease Irregular Heartbeat (Hx Non-sust VT, post-op afib, hx a.flutter) Rheumatic Fever Denies:: AICD Congestive Heart Failure Edema Heart Murmur Hypertension Pacemaker Thrombophlebitis Valvular Heart Disease (echo 2017- ef 55-60%) Hx of Respiratory Problem?: Yes Respiratory History: Positive for:: Dyspnea (ON EXERTION) Use of C-PAP Machine Denies:: Asthma COPD Emphysema Hemoptysis Oxygen Administration Pneumonia (past hx of as child) Tuberculosis Hx Neurologic Problems?: Yes Neurological History: Denies:: Alzheimer's Disease CVA Dementia Dizziness Headaches Multiple Sclerosis Parkinson's Disease Seizures TIA Hx of GI Problems?: Yes Hx of Problems?: No Genitourinary History: Denies:: Kidney Stones Urinary Tract Infection Male Hx: Positive for:: Prostate Problems (radical prostatectomy hx, followed by oncology) Denies:: Scrotal Mass Testicular Surgery Skin History: Denies:: History Skin Disorders? Pressure Ulcers Hx Musculoskeletal Problems?: Yes Musculoskeletal History: Positive for:: Back Injury (hx of back problems ) Degenerative Joint Musculoskeletal Trauma (Damaged nerve in right LE causing foot drop.) Osteoarthritis Denies:: Fibromyalgia Joint Replacement (right knee current admission plan) Myasthenia Gravis Systemic Lupus Hx of Psycho/Social Problems?: No Psycho Social History: Denies:: Anxiety Hx Depression Hx Surgeries?: Yes (CABG, hemorrhoidectomy, tonsil, left ing hernia, prostatectomy) Hx Any Other Health Problems?: Yes Other History: Positive for:: Cancer (prostate ) Hospitalization Denies:: Endocrine Disease Thyroid Disease History Blood Transfusions: Positive for:: Accept Blood Products? Blood Transfusions Denies:: Blood Transfuse Reaction Hx Diabetes: No Hx Alcohol Use: YesAlcoholic Drinks Per Day: one drink dailyHx Substance Use: No Smoking Status: Never Smoker Have You Smoked inLast 12 mo: No Stop/Bang Treated for Sleep Apnea?: Yes Do You Have a CPAP Machine?: Yes S-Snoring: Do You Snore Loudly: Yes T-Tired: feel tired, fatigued: Yes O-Obsered: Observed not breath: Yes P-Blood Pressure: treated: No B- Body Mass Index > 35 kg/m2: No A- Age over 50: Yes N- Neck Large Circumference: No G- Gender Male: Yes ROSS Total Score: 5 ROSS Risk Assessment: High Risk, =/>3 Yes ROSS Category 1: Yes Risk Assessment Category Category 1A: Patient has history of documented sleep apnea, and HAS NOT received any narcotic, sedative or anesthesia administration during this stay. Category 1B: Patient has history of documented sleep apnea, and HAS received any narcotic , sedative or anesthesia administration during this stay Category 2: Patient has SUSPECTED Obstructive Sleep Apnea, and HAS received any narcotic , sedative or anesthesia administration during this stay. Category 3: Patient has SUSPECTED Obstructive Sleep Apnea and HAS NOT received narcotic, sedative or anesthesia administration during this stay. Category 4: Outpatient in Procedural Areas with known sleep apnea or who screen positive for High Risk via the STOP/BANG questionnaire. Exam Exam General Appearance: Alert, Oriented X3, Cooperative HEENT/AIRWAY: MP 2 Lungs: Clear to Auscultation Heart: Regular Rate/Rhythm Plan Impression Patient chart reviewed, patient interviewed and anesthestic plan with risks, benefits, and alternatives discussed, and informed consent obtained. ASA Physical Status: ASA3 Severe Disease Anesthetic Plan: Regional Block, SAB Bene/Risks/Altern/Consents: Yes HP Complete Prior to Induction: Yes Burton Ponce DO Dec 08, 2016 08:03
[2016-12-08] MEDS ORDERED: Ondansetron 2 mg/mL 2 mL Inj IVPUSH PRN (10:05)
[2016-12-08] MEDS ORDERED: EPHEDrine Sulfate 50 mg/mL Inj IVPUSH PRN (10:05)
[2016-12-08] MEDS ORDERED: Atropine 0.4 mg/mL Inj IVPUSH PRN (10:05)
[2016-12-08] MEDS ORDERED: MetoCLOpramide 5 mg/mL 2 mL Inj IVPUSH PRN (10:05)
[2016-12-08] MEDS ORDERED: Dexamethasone 4 mg/mL Inj IVPUSH PRN (10:05)
[2016-12-08] MEDS ORDERED: Labetalol 5 mg/mL 20 mL Inj IV PRN (10:05)
[2016-12-08] MEDS ORDERED: fentaNYL-PF 50 mCg/mL 2 mL Inj IVPUSH PRN (10:05)
[2016-12-08] MEDS ORDERED: Phenylephrine 10,000 mCg/mL Inj IVPUSH PRN (10:05)
[2016-12-08] MEDS ORDERED: hydrALAZINE 20 mg/mL Inj IVPUSH PRN (10:05)
[2016-12-08] MEDS ORDERED: Bupivacaine-MPF 0.25%/EPI 30 mL Inj INFILTRATE ONE (10:08)
[2016-12-08] MEDS ORDERED: Gentamicin 40 mg/mL 2 mL Inj IRRIGATION ONE (10:08)
--- NOTE | 2016-12-08 11:09 | OP ---
[address] [address] OPERATIVE REPORT PATIENT: JADE ARTEAGA : 1950 MR#: [id number] ADMIT: 12/08/2016 JOB ID: [id number] DATE OF SURGERY: 12/08/2016 PREOPERATIVE DIAGNOSIS(ES): Osteoarthritis, right knee. POSTOPERATIVE DIAGNOSIS(ES): Osteoarthritis, right knee. PROCEDURE: Right total knee replacement. SURGEON: Ernie Reyna M.D. STRUCTURAL ANALYST: Kristyn Dunn PA-C. Editorial Specialist required due to the complexity of the operation. INDICATIONS: This gentleman has had severe progressive disability associated with the right knee. He has failed to respond to conservative management and requests proceeding with a total knee replacement. He understands and accepts the potential for risks and complications, which include but is not limited to infection, thromboembolic, neurovascular events, as well as potential for implant failure. DESCRIPTION OF PROCEDURE: The patient was prepped and draped in the usual sterile fashion. An anteromedial approach was made to the knee. Dissection was carried down. Patella was subluxed laterally. The patella was examined. There was a large lesion of the trochlear groove, but the articular surface of the patella was completely normal and a decision was made not to resurface this. The drill hole was placed in the distal femur and a 5 degree valgus distal femoral cut was made. Following this, the femur was sized to a 9 block which was utilized to make chamfer cuts. All bone fragments were removed. The tibia was cut with the extramedullary tool sized to an F. All meniscal tissue and osteophytes were removed. Trial reduction was performed and excellent range of motion and soft tissue tension and tracking was achieved with a 10 mm polyethylene insert. Copious irrigation with saline followed by Betadine irrigation per protocol was utilized. Following pressurized lavage, pressurized cementation of the components ensued. The final construct was assembled. Tourniquet was let down. Hemostasis was achieved. A deep Hemovac drain was left. The knee was closed deep with number #2 Quill deep followed by 2-0 Vicryl, 3-0, and a 4-0 intracuticular stitch with Steri-Strips. Sterile dressing applied. The patient returned to the recovery room in stable condition. He tolerated the procedure well. There were no complications.
--- NOTE | 2016-12-08 11:52 | DRSVH ---
PROCEDURE: X-RAY RIGHT KNEE, ONE OR TWO VIEWS ([id number]) INDICATIONS: check alignment TECHNIQUE: 2 views of the knee acquired. COMPARISON: [facility], CR, XR KNEE 1 OR 2VW RT, 09/13/2016, 15:11. FINDINGS: Bones: Patient is status post right knee joint arthroplasty. Hardware components are in expected po sitions with near-anatomic alignment. There is periprosthetic lucency noted along the lateral tibial plateau. Visualized bony structures are intact. Soft tissues: Overlying postoperative changes are noted. IMPRESSION: 1. Postsurgical changes status post right knee arthroplasty with near-anatomic alignment. Dictated by: Jaun Reyes M.D. on 12/08/2016 at 11:49 Approved by: Jaun Reyes M.D. on 12/08/2016 at 11:50
[2016-12-08] MEDS ORDERED: Bupivacaine-MPF 0.75% 30 mL Inj ONE (12:09)
[2016-12-08] MEDS ORDERED: Propofol 10,000 mCg/mL 20 mL Inj ONE (12:09)
[2016-12-08] MEDS ORDERED: MetoCLOpramide 5 mg/mL 2 mL Inj IV PRN (12:20)
[2016-12-08] MEDS ORDERED: Ondansetron 2 mg/mL 2 mL Inj IV PRN (12:20)
[2016-12-08] MEDS ORDERED: Ondansetron 8 mg ODT Tablet PO PRN (12:20)
[2016-12-08] MEDS ORDERED: Sodium Biphos-Phos 133 mL Enema RECTAL PRN (12:20)
[2016-12-08] MEDS ORDERED: oxyCODONE-Acetamin 5-325 mg Tablet PO PRN (12:20)
[2016-12-08] MEDS ORDERED: LORazepam 0.5 mg Tablet PO PRN (12:20)
[2016-12-08] MEDS ORDERED: Magnesium Hydroxide 10 mL Oral Concentration PO PRN (12:20)
[2016-12-08] MEDS ORDERED: diphenhydrAMINE 25 mg Capsule PO PRN (12:20)
--- NOTE | 2016-12-08 12:27 | PCM.ANEP1 ---
Post Anesthesia PACU Phase 1 Assessment Vital Signs Vital Signs Date Time Temp Pulse Resp B/P Pulse Ox O2 Delivery O2 Flow Rate FiO2 12/08/16 11:55 36.4 58 15 110/68 96 Room Air 12/08/16 11:45 54 13 109/64 96 Room Air 12/08/16 11:38 15 96 12/08/16 11:30 36.4 59 15 104/63 94 Room Air 12/08/16 11:20 59 15 107/62 94 Room Air 12/08/16 11:15 61 14 106/65 94 Room Air 12/08/16 11:15 14 96 12/08/16 11:12 36.3 67 12 109/65 94 Room Air 12/08/16 08:02 36.1 74 16 134/86 99 Room Air Anesthetic Administered: Regional Block, SAB Level of Alertness: Awake, talking STONER's with Equal Strength: No (SAB) Pain: No Nausea or Vomiting: No CV Function & Hydration Stable: Yes Airway Device: Oxygen Delivery: Room Air Lungs: Clear to Auscultation Dermatome Level: L1,2 (Groin) PACU Phase 2 Assessment Complications: No Follow up Care: N/A Patient Instructions Provided: N/A Burton Ponce DO Dec 08, 2016 12:27
[2016-12-08] MEDS: Ketorolac 15 mg/mL Inj IV SCH ×2 (15:08→20:41)
[2016-12-08] MEDS: Alum-Mag Hydrox-Simeth 30 mL Suspension PO PRN ×2 (15:08→21:47)
--- NOTE | 2016-12-08 16:08 | NUR ---
Post op Pt arrived at 1200 in bed. Right knee wrapped in shyanne wrap with ice bag in place. SCD on unaffected leg, RA, VSS, STONER, A&O x 3. No c/o pain. Pt oriented to room and call light.
[2016-12-08] MEDS: CeFAZolin 2 Gm/50 mL D5W Premix IV SCH (18:00)
[2016-12-08] MEDS ORDERED: Vancomycin Inj 1,250 MG in 0.9% Sodium Chloride 250 ML IV ONE (20:30)
[2016-12-09] MEDS: CeFAZolin 2 Gm/50 mL D5W Premix IV SCH (01:58)
[2016-12-09] MEDS: Ketorolac 15 mg/mL Inj IV SCH (02:11)
[2016-12-09 04:50] VITALS: BP 128/80; PULSE 84; RESP 16; O2SAT 97
--- NOTE | 2016-12-09 05:08 | NUR ---
Pain/dressing Pt requested Tylenol for headache /10 and reduced to 1/10 at reassessment. No further complaints at this time. Scheduled Ketorolac helpful in pain control receiving last routine dose and ice packs applied to RT knee. No drainage noted on shyanne wraps. Dressing c/d/i. VSS. Care continues.
[2016-12-09 05:33] LABS: BASOPHILS % (AUTO) 0.4 % (0-3); EOSINOPHILS % (AUTO) 3.1 % (0-5); MONOCYTES % (AUTO) 13.4 % (4-12); Mean Corpuscular Hemoglobin 28.7 pg (27.0-35.0); Mean Corpuscular Volume 82.9 fL (81-100); NEUTROPHILS % (AUTO) 75.1 % (40-74); Platelet Count 151 bil/L (150-400)
[2016-12-09] MEDS: Pantoprazole 20 mg ER24 Tablet PO SCH (06:22)
[2016-12-09] MEDS: hydrOXYzine Pamoate 25 mg Capsule PO PRN ×5 (07:50→23:11)
[2016-12-09 08:00] VITALS: BP 124/76; PULSE 76; RESP 18; O2SAT 97
[2016-12-09] MEDS: Lactated Ringer's 1,000 ML IV SCH ×2 (08:05→20:48)
[2016-12-09] MEDS: HYDROcodone-APAP 5-325 mg Tablet PO PRN ×6 (08:07→23:11)
[2016-12-09 13:04] VITALS: BP 108/69; PULSE 82; RESP 18; O2SAT 95
--- NOTE | 2016-12-09 14:21 | PCM.PNORTH ---
Subjective Date of Service: Dec 09, 2016 Visit Information: Reason for Visit Right Knee Osteoarthritis Surgery/Surgery Date Post-Op Day # Date of Admission: Dec 08, 2016 at 12:08 Hospital Day # Subjective Patient states he is having some pain but it is controlled with his pain medication. He has no concerns Postop General: No Complaints, No Shortness of Breath, No Chest Pain Pain Management: PO Objective Exam Objective Patient sitting up in bed Vital Signs and I/O Vital Sign - Last Date Time Temp Pulse Resp B/P Pulse Ox O2 Delivery O2 Flow Rate FiO2 12/09/16 10:48 Room Air 12/09/16 08:00 36.7 76 18 124/76 97 12/09/16 00:28 21 Intake and Output 12/08/16 12/08/16 12/09/16 Cumulative From/Thru 15:00 23:00 07:00 11/30/16 10:39 - 12/09/16 06:26 Intake Total 1000 ml 1173 ml 2314 ml 4487 ml Output Total 100 ml 600 ml 660 ml 1360 ml Balance 900 ml 573 ml 1654 ml 3127 ml Intake Oral 1000 ml 1200 ml 2200 ml IV Total 1000 ml 173 ml 1114 ml 2287 ml Output Urine Total 600 ml 660 ml 1260 ml Drainage Total 0 ml 0 ml 0 ml Estimated Blood Loss 100 ml 100 ml # Bowel Movements 0 0 Lab & Micro Results Laboratory Tests Test 12/09/16 04:46 White Blood Count 5.2th/mm3 (3.8-10.1) Red Blood Count 4.22mil/mm3 (4.40-5.80) Hemoglobin 12.1g/dL (13.8-17.2) Hematocrit 35.0% (41.0-50.0) Mean Corpuscular Volume 82.9fL (81-100) Mean Corpuscular Hemoglobin 28.7pg (27.0-35.0) Mean Corpuscular Hemoglobin Concent 34.6% (32.0-37.0) Red Cell Distribution Width 12.7% (12.3-15.4) Platelet Count 151bil/L (150-400) Neutrophils (%) (Auto) 75.1% (40-74) Lymphocytes (%) (Auto) 7.8% (14-46) Monocytes (%) (Auto) 13.4% (4-12) Eosinophils (%) (Auto) 3.1% (0-5) Basophils (%) (Auto) 0.4% (0-3) Result Diagram: 12/09/16 0446 General Appearance: Alert, Oriented X3, Cooperative, No Acute Distress Extremities: Distal Pulses Palpable, No Compartment Syndrom Noted Postop Sensory Motor: Distal Motor Intact, Movement in Toes, Distal Sensation Intact, NVI Distally SURGICAL WOUND : Wound Location/Description Perioperative dressing c/d/i Drain Location Body Site: Knee Wound Drainage Type: Hemovac Assessment & Plan Impression POD#1 right total knee arthroplasty Problems: Plan Weightbearing: Weightbearing as tolerated with a front wheeled walker DVT prophylaxis: Aspirin 81 mg twice a day 6 weeks Physical therapy for transfers, progressive ambulation, strengthening Wound care: Perioperative dressing will be changed to an island dressing tomorrow. Analgesia: Oral pain management preferred Discharge plan: Discharge home in 1-2 days. Start outpatient physical therapy next week. Follow-up plan: In 2 weeks at [facility] with JAC for wound check and at [address] Reyna with x-rays Kristyn Dunn PA-C Dec 09, 2016 11:12
--- NOTE | 2016-12-09 14:57 | NUR ---
Activity Pt up and ambulating in hallway with PT and sitting in chair multiple times today. Only having mild pain 3/10 that is well controlled with meds. Ice bags in place. Dressing is CDI. Hemovac set to suction and has sero-sanguinous output. Transferring care to ADDY Hurd.
--- NOTE | 2016-12-09 16:13 | NUR ---
Social Work: Initial Assessment/Multidisciplinary Rounds D: Per EMR review, pt is a 66 year old male admitted for right knee osteoarthritis. Pt is [employer] with Medicare Part A; pt has no LTC or VA benefits. PCP is Jaun Valdes MD. NOK is Suyapa Moe, , . Advanced directives not completed- pt declined information. Readmit score not entered. Pt discussed in Multidisciplinary rounds. Capacity for self care discussed; no concerns or needs at this time. STOCK REPAIRER met with the patient at bedside. Social work/dcp role explained, contact information and discharge planning checklist provided. See initial assessment. Pt lives at home with is in [place]. 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 The patient has never had skilled rehab but has a very distant history with home health. He cannot recall which company. P anticipates discharge home with his when medically stable and states that he has been ambulating I. A: Pt who is I at baseline. P: Anticipate pt to discharge home via POV once medically stable; STOCK REPAIRER to continue to follow to assess for unmet discharge needs ERIK Pappas Addendum: 12/09/16 at 1616 by HARISH MENDEZ Amended: Links added.
--- NOTE | 2016-12-09 18:03 | NUR ---
Hemovac/Flu Shot Hemovac: Hemovac dc'd intact at 1710 with 100cc output. Gauze and tegaderm in place. Pt REINA wrap reapplied. Flu Shot: Pt requesting to have his flu shot during this hospitalization d/t upcoming flu season. Attempted to call on-call OBI, no answer, no message left. Cook page then sent at [phone]. Care continues.
[2016-12-09 20:09] VITALS: BP 114/69; PULSE 76; RESP 16; O2SAT 96
[2016-12-09 23:39] LABS: APPEARANCE,URINE CLEAR (CLEAR,HAZY); COLOR,URINE YELLOW (YELLOW); OCCULT BLOOD,URINE NEGATIVE (NEGATIVE); UROBILINOGEN,URINE NORMAL (NORMAL)
--- NOTE | 2016-12-10 03:31 | NUR ---
Pain Pt reporting pain 3-4/10 and had been taking 1 tab of Wilson q3 hrs to control pain. However, pt did need additional pain pill an hour after given since pain remained the same. Pt can have 1-2 tabs q3 hrs. Pt also taking Vistaril q4 hrs to help with pain control. Ice applied to knee. [place] wrap dressing is CDI. Pt keeps AFO brace on right ankle for baseline foot drop. PA did confirm that she did not want to give the patient a flu shot.
[2016-12-10] MEDS: HYDROcodone-APAP 5-325 mg Tablet PO PRN ×3 (04:02→10:18)
[2016-12-10] MEDS: hydrOXYzine Pamoate 25 mg Capsule PO PRN ×2 (04:03→08:01)
[2016-12-10 05:13] VITALS: BP 118/65; PULSE 70; RESP 16; O2SAT 97
[2016-12-10] MEDS: Pantoprazole 20 mg ER24 Tablet PO SCH (05:55)
--- NOTE | 2016-12-10 09:39 | PCM.PNORTH ---
Subjective Date of Service: Dec 10, 2016 Visit Information: Reason for Visit Right Knee Osteoarthritis Surgery/Surgery Date Post-Op Day # 2 Date of Admission: Dec 08, 2016 at 12:08 Hospital Day # Subjective Patient states he is feeling well today. He states his pain is well controlled and localized to his right knee. He states he has worked with physical therapy and feels confident in his ability to ambulate safely with the assistance of a front wheeled walker. Postop General: No Complaints, No Shortness of Breath, No Chest Pain Pain Management: PO Objective Exam Objective Patient sitting up in chair and then ambulated with a walker to the bed. He did this without my assistance however I was present. Dressings were changed from perioperative bulky dressings to an island dressing. Silverlon dressing was re-wetted and placed back on the wound before application of island dressing. Vital Signs and I/O Vital Sign - Last Date Time Temp Pulse Resp B/P Pulse Ox O2 Delivery O2 Flow Rate FiO2 12/10/16 09:08 Room Air 12/10/16 05:13 36.8 70 16 118/65 97 12/10/16 03:31 21 Intake and Output 12/09/16 12/09/16 12/10/16 Cumulative From/Thru 15:00 23:00 07:00 11/30/16 10:39 - 12/10/16 06:01 Intake Total 1000 ml 600 ml 6087 ml Output Total 1200 ml 950 ml 3510 ml Balance -200 ml -350 ml 2577 ml Intake Oral 1000 ml 600 ml 3800 ml IV Total 2287 ml Output Urine Total 1100 ml 950 ml 3310 ml Drainage Total 100 ml 100 ml Estimated Blood Loss 100 ml # Bowel Movements 0 0 0 Lab & Micro Results Laboratory Tests Test 12/09/16 23:13 Urine Color Yellow (YELLOW) Urine Appearance Clear (CLEAR,HAZY) Urine pH 6.0 (5.0-8.0) Urine Specific Witt 1.010 (1.003-1.035) Urine Protein Negativemg/dL (NEG,TRACE) Urine Glucose (UA) Negativemg/dL (NEGATIVE) Urine Ketones Negativemg/dL (NEGATIVE) Urine Occult Blood Negative (NEGATIVE) Urine Nitrite Negative (NEGATIVE) Urine Bilirubin Negative (NEGATIVE) Urine Urobilinogen Normalmg/dL (NORMAL) Urine Leukocyte Esterase Negative (NEGATIVE) Urine RBC 0-2/hpf (0-2) Urine WBC 0-5/hpf (0-5) Urine Epithelial Cells Few/hpf (NONE-MOD) Urine Crystals None seen (NONE SEEN) Urine Bacteria Few/hpf (NONE-FEW) Urine Hyaline Casts None/lpf (NONE) Urine Granular Casts None seen (NONE SEEN) Urine Waxy Casts None seen (NONE SEEN) Urine Red Blood Cell Casts None seen (NONE SEEN) Urine White Blood Cell Casts None seen (NONE SEEN) Urine Mucus None seen (None Seen) Urine Trichomonas None seen (NONE SEEN) Urine Yeast None (NONE SEEN) Urinalysis Comment None Urine Culture Reflexed Not indicated Result Diagram: 12/09/16 0446 General Appearance: Alert, Oriented X3, Cooperative, No Acute Distress Extremities: Distal Pulses Palpable, No Compartment Syndrom Noted, Tenderness/ Swelling Noted Postop Sensory Motor: Distal Motor Intact, Movement in Toes, Distal Sensation Intact, NVI Distally (with the exception of known drop foot present upon admission) SURGICAL WOUND : Drain Location Body Site: Knee Wound Drainage Type: Hemovac Activity: Ambulate with PT Assessment & Plan Impression POD#2 right total knee arthroplasty Problems: Plan Weightbearing: Weightbearing as tolerated with a front wheeled walker DVT prophylaxis: Aspirin 81 mg twice a day 6 weeks Wound care: Dressing should stay in place as tolerated. Change if saturated. Keep compression stockings in place bilaterally for approximately 4 weeks post- op. Analgesia: Oxycodone/acetaminophen for pain. Vistaril (hydroxyzine pamoate) for discomfort/spasms. Discharge plan: Discharge home today. Start outpatient physical therapy next week. Follow-up plan: In 2 weeks at [facility] with JAC for wound check and at [address] Reyna with x-rays Kristyn Dunn PA-C Dec 10, 2016 09:38
--- NOTE | 2016-12-10 09:42 | PCM.DIORTH ---
Ortho Discharge Instruction Date of Service: Dec 10, 2016 Dates of Hospitalization Date of Hospital Admission Dec 08, 2016 at 12:08 Providers Admitting Physician: Ernie Reyna MD Primary Care Physician: Jaun Valdes MD Attending Physician: Ernie Reyna MD Diet Discharge Diet: No restrictions Activity Discharge Activity-General: Be up and about, Balance rest and activity, Elevate & ice extremity, Ice incision 3-5 time/day for 20min Right Lower Extremity: Weight Bearing as tolerated Discharge Assist Device: Front Wheeled Walker Dressing and Incisional Care Discharge Hygiene: May shower (with dressing covered with a plastic bag or saran wrap to keep it dry) Additional Instructions Discharge Instructions Weightbearing: Weightbearing as tolerated with a front wheeled walker DVT prophylaxis: Aspirin 81 mg twice a day 6 weeks Wound care: Dressing should stay in place as tolerated. Change if saturated. Keep compression stockings in place bilaterally for approximately 4 weeks post- op. Do not get dressings wet - cover while showering. Analgesia: Oxycodone/acetaminophen for pain. Vistaril (hydroxyzine pamoate) for discomfort/spasms. Discharge plan: Discharge home today. Start outpatient physical therapy next week. Follow-up plan: In 2 weeks at [facility] with JAC for wound check and at [address] Reyna with x-rays Kristyn Dunn PA-C Dec 10, 2016 09:42
[2016-12-10] MEDS ORDERED: ASPI-973 PO (09:45)
[2016-12-10] MEDS ORDERED: OXYC1TAB24 PO (09:45)
[2016-12-10] MEDS ORDERED: HYDR-3797 PO (09:45)
[2016-12-10 13:16] VITALS: BP 111/75; PULSE 69; RESP 16; O2SAT 97
--- NOTE | 2016-12-10 15:05 | NUR ---
Discharge Pt discharged to home with at 1500. A&Ox3, STONER, VSS, Pain tolerable, Hard copy script provided to prior to dc to be filled at pharmacy, IV dc'd intact, All personal belongings in hand at dc, CareNotes and instructions provided on dc dx, wound care and s/sx to seek medical attention for, Iam Hose in place, Dressing CDI to right knee, No questions/concerns left unanswered. Pt wheeled out to vehicle - used FWW to assist with getting into vehicle.
--- NOTE | 2016-12-10 17:09 | NUR ---
Social Work Note: Discharge Data& Assessment: Per pt is medically ready to discharge home via POV. Elkin Moe is a 66 year old male admitted on 12/08/2016 for right knee osteoarthritis. Per MD pt is medically improved and ready to discharge. PT cleared pt to return home with outpt PT. Pt transporting pt home privately. No other discharge needs or MD orders identified. Plan: Per pt is medically ready to discharge home via POV. No other discharge needs or MD orders identified. ERIK Chin
--- NOTE | 2016-12-11 10:04 | PCM.DC.ORT ---
Discharge Summary Date of Service: Dec 11, 2016 Date of Hospital Admission: Dec 08, 2016 at 12:08 Date of Discharge: Dec 11, 2016 Reason for Hospitalization: Right knee osteoarthritis Procedures Performed: Right total knee arthroplasty Hospital Course: The patient was admitted to the hospital on 12/08/2016 and underwent the above procedure. Antibiotic prophylaxis consisting of Ancef and vancomycin. The surgeon was Dr. Reyna. Patient tolerated the procedure well and was transferred to recovery room in stable condition. Patient had physical therapy to work on ambulation and transfers. Weightbearing as tolerated with walker. Pain was managed with Percocet, Vistaril, Toradol. DVT prophylaxis: Aspirin 81 mg twice a day and SCDs. Hospital course was uncomplicated. Patient was able to perform adequately enough to be discharged homeon postop day 2. Follow-up: at [facility] 2 weeks postop for wound check and at [address] Reyna with x-ray. Discharge Instructions: Weightbearing: Weightbearing as tolerated with a front wheeled walker DVT prophylaxis: Aspirin 81 mg twice a day 6 weeks Wound care: Dressing should stay in place as tolerated. Change if saturated. Keep compression stockings in place bilaterally for approximately 4 weeks post- op. Do not get dressings wet - cover while showering. Analgesia: Oxycodone/acetaminophen for pain. Vistaril (hydroxyzine pamoate) for discomfort/spasms. Discharge plan: Discharge home today. Start outpatient physical therapy next week. Follow-up plan: In 2 weeks at [facility] with PA for wound check and at [address] Reyna with x-rays Aspirin (Aspirin) 81 Mg Tablet 81 MG PO BID Cholecalciferol (Vitamin D3) (Vitamin D3) 2,000 Unit Tablet 2,000 UNIT PO DAILY Cyanocobalamin/Folic Acid (Vitamin D84-Piohr Acid Tablet) 1 Each Tablet 1 EACH PO 3xweekly Hydroxyzine Pamoate (HydrOXYzine Pamoate) 25 Mg Capsule 0 MG PO Q6H PRN PRN For Restlessness Nitroglycerin SL (Nitroglycerin SL) 0.4 Mg Tab.subl 0.4 MG SL PRN For Chest Pain Omeprazole (Omeprazole) 20 Mg Capsule.dr 20 MG PO DAILY Rosuvastatin Calcium (Crestor) 20 Mg Tablet 20 MG PO DAILY Turmeric/Turmeric Ext/Pepr Ext (Turmeric Complex 500 mg Cap) 500 Mg-3 Mg Capsule 1 EACH PO DAILY oxyCODONE-Acetaminophen 5-325 mg (oxyCODONE-Acetaminophen 5-325 mg) 1 Each Tablet 1-2 TAB PO Q6H PRN PRN For Severe Pain Kristyn Dunn PA-C Dec 11, 2016 10:04
== END 2016-12-10 15:00 | disposition home or self-care (01) | DRG 470 ==
LOC: SAS 07:18 → OSC 12:08
PROVIDERS: ADMIT Orthopaedic Surgery; ATTEND Orthopaedic Surgery
PROC: 0SRC0J9 Replacement of Right Knee Joint with Synthetic Substitute, Cemented, Open Approach (ICD-10-PCS; principal; 2016-12-08 08:45)
DX: M17.11 Unilateral primary osteoarthritis, right knee (principal); Z79.82 Long term (current) use of aspirin